=== PATIENT | male | born 1975 | race Caucasian/White ===

== ENCOUNTER 2016-11-16 06:07 | Emergency (ER) | payer OTHER ==
--- NOTE | ~2016-11-16 | ER ---
PATIENT'S NAME: MOHIT RODRIGUEZ [facility] AGE: 41 Y [address] ROOM: [place] [address] LOCATION: [facility] ADMIT DATE: 11/16/2016 ER/Outpatient Report DISCHARGE DATE: 11/16/2016 FAMILY PHYSICIAN: PHYSICIAN, AUDREY ATTENDING PHYSICIAN: Nubia Koo Time of Arrival: 0607 hours. Time Seen: 0610 hours. IDENTIFICATION: A 41-year-old male. CHIEF COMPLAINT: Chest pain. HISTORY OF PRESENT ILLNESS: The patient is a 41-year-old male who last night developed chest pain that has been present throughout the night, with severe substernal and epigastric pain. He had nausea and vomiting x4, was short of breath and weak. The pain is a little bit better at this time, it was a 10 and is down to 2 or 3 at this time. He has never had pain like this before. He has had nausea and vomiting. No diarrhea. No constipation. No blood in his stools. No dark, tarry, or black stools. Positive family history of coronary artery disease. He does have a history of kidney stones. He himself has no history of hypertension, hyperlipidemia, and he does not smoke. Radiation of the pain, the patient said initially it started in his back. ALLERGIES: NO KNOWN DRUG ALLERGIES. CURRENT MEDICATIONS: None. MEDICAL PROBLEMS: History of kidney stones and detached retina. PRIOR SURGERIES: Retrieval of kidney stones. FAMILY HISTORY: Positive family history of coronary artery disease. REVIEW OF SYSTEMS: All systems reviewed and negative other than what is noted in the HPI. PATIENT'S NAME: MOHIT RODRIGUEZ [facility] AGE: 41 Y [address] ROOM: [place] [address] LOCATION: [facility] ADMIT DATE: 11/16/2016 ER/Outpatient Report DISCHARGE DATE: 11/16/2016 FAMILY PHYSICIAN: PHYSICIAN, AUDREY ATTENDING PHYSICIAN: Nubia Koo PHYSICAL EXAMINATION: VITAL SIGNS: Height 5 feet 9 inches, weight 79.6 kg. Blood pressure 125/72, pulse 65, respirations 18, temperature 96.4, and saturations 96% on room air. HEENT: Head: Normocephalic, atraumatic. Ears: TMs translucent, both ears. Eyes: Pupils equal and reactive to light and accommodation. Extraocular movements intact. Nose: Mucosa pink. No lesions. Mouth: No lesions. Pharynx benign. NECK: Supple. No lymphadenopathy. No nuchal rigidity. LUNGS: Clear to auscultation. HEART: Regular rate and rhythm. No murmur, rub, or gallop. ABDOMEN: Bowel sounds present. Soft, nondistended. Slightly tender to palpation in the epigastric region. No rebound or guarding. EXTREMITIES: No lower extremity edema. No calf tenderness. MUSCULOSKELETAL: The patient also has some slight anterior chest wall tenderness. No CVA tenderness. DIAGNOSTIC DATA: EKG: Normal sinus rhythm at 69 beats per minute. No acute ST elevation or depression. D-dimer 0.44. Hemoglobin 16.4, hematocrit 44.9, platelets 208, and white count 11.4. INR 1.0. Chemistry panel is normal. Chest x-ray, no acute process, pending Radiology over-read. CT scan, PE protocol: No evidence of PE, very small noncalcified nodules, one at the mid right lung and one at the left upper lung, too small to characterize. Followup study in 6 months is recommended to confirm stability. Questionable mild gallbladder wall thickening. Right upper quadrant ultrasound shows small gallbladder polyp with no evidence of cholelithiasis or an acute cholecystitis. Four rounded echogenic lesions within the liver measuring up to 1.7 cm in size, these may represent multiple hemangiomas. Followup study in 6 months may be helpful. The patient did not want anything for pain and his pain remained minimal throughout the rest of his stay here in the emergency room. IMPRESSION: 1. Chest and abdominal pain, noncardiac in nature. 2. Incidental right lung nodule, also small left upper lung nodule. Recommend followup study in 6 months. 3. Probable hemangiomas in the liver. Also recommend followup in 6 months. PLAN: Bogart 5/325 one p.o. q.6 hours p.r.n. severe pain, dispensed 10 with 0 refills. Zofran ODT 4 mg one q.6 hours p.r.n. nausea. Prilosec over-the- counter 20 mg daily for 2 weeks. Low-fat bland diet. Follow up at [facility] in 7-10 days, follow up sooner if any problems or concerns. The patient and his understand and agree, and all questions have been [facility]GE: 41 Y [address] ROOM: [place] [address] LOCATION: ED ADMIT DATE: 11/16/2016 ER/Outpatient Report DISCHARGE DATE: 11/16/2016 FAMILY PHYSICIAN: AUDREY SAVAGE ATTENDING PHYSICIAN: Nubia Koo answered. MD ALBINO LOWERY/modl /[id number] d: 11/16/162056 t: 11/20/16911, OUTPATIENT REPORT
[2016-11-16 06:43] LABS: BASOPHIL # 0.1 K/uL (0.0-0.2); BASOPHIL % 0.6 %; EOSINOPHIL # 0.1 K/uL (0.0-0.5); EOSINOPHIL % 0.8 %; HEMATOCRIT 44.9 % (37.0-53.0); HEMOGLOBIN 16.4 g/dL (12.0-17.0); IMMATURE GRANULOCYTE % 0.3 %; LYMPHOCYTE # 0.9 K/uL (0.8-4.0); LYMPHOCYTE % 7.7 %; MCHC 36.5 gm/dL (32.0-36.5); MCV 87.5 fl (83.0-98.0); MONOCYTE # 0.3 K/uL (0.0-1.0); MONOCYTE % 2.6 %; MPV 10.1 fl (9.4-12.4); NRBC % 0 /100WBC (0-0.00); PLATELET COUNT 208 K/uL (150-450); RBC 5.13 M/uL (4.00-6.00); RDW-CV 11.9 % (11.9-14.6); WBC 11.4 K/uL (4.0-11.0)
[2016-11-16 06:52] LABS: PROTIME 10.5 SECONDS (9.8-11.4); PTT 29 SECONDS (25-32)
[2016-11-16 06:59] LABS: ALBUMIN 3.9 gm/dL (3.5-5.0); ALK PHOS 88 IU/L (33-138); ALT 33 IU/L (12-78); ANION GAP 9.3 (10.0-19.0); AST 23 IU/L (10-40); BLOOD UREA NITROGEN 22 mg/dL (6-24); CHLORIDE 109 mMol/L (96-110); CO2 25 mMol/L (22-32); CPK 150 IU/L (35-332); CREATININE 1.3 mg/dL (0.6-1.3); MAGNESIUM 2.1 mg/dL (1.8-2.6); POTASSIUM 4.3 mMol/L (3.7-5.1); SODIUM 139 mMol/L (135-145); TOTAL BILIRUBIN 1.4 mg/dL (0.0-1.5); TOTAL PROTEIN 7.1 g/dL (6.0-8.4)
== END 2016-11-16 09:22 | disposition disaster alternative care site (69) ==
LOC: GMED 06:07
PROVIDERS: Family Medicine
DX: R07.89 Other chest pain (principal); R10.13 Epigastric pain; R91.8 Other nonspecific abnormal finding of lung field; Z87.442 Personal history of urinary calculi; Z98.890 Other specified postprocedural states
CPT/HCPCS: Q9967